=== PATIENT | female | born 1990 | race Caucasian/White ===

== ENCOUNTER 2021-09-01 04:11 | Observation (INO) | payer OTHER, SELFPAY ==
[2021-09-01] VITALS (46 sets, daily range): BP systolic 93–122; BP diastolic 53–100; PULSE 87–160; RESP 12–20; TEMP 36.5–37.8; O2SAT 97–100; BMI 22.4
--- NOTE | 2021-09-01 04:18 | ED_ITS ---
HPI - General Adult <Bonita Eugene MD - Last Filed: 09/05/21 02:27> General Chief complaint: GI Bleed Stated complaint: d/v/n Time Seen by Provider: 09/01/21 04:16 History of Present Illness HPI narrative: 31-year-old woman who had an outpatient procedure today with hemorrhoid removal and keloid revision on her perineum had some bleeding immediately after the procedure came back and saw her primary care physician, Dr. Joseph Mancera who put in another suture and felt that bleeding was controlled. After going home a 2nd time she continued to have significant clots from the operative site continues to experience tenesmus followed by significant clots, multiple episodes of syncope, multiple episodes of emesis (water that she drank prir only). describes multiple ?puddles of blood in the bathroom is brought to the emergency room by her and is laying flat in the backseat unable to sit up without acute syncopal episode. Medics were called to assist in getting her out of the car and into the emergency department. She complains of rapid heartbeat, slight dyspnea, no headache no overt abdominal pain. Related Data Home Medications Medication Instructions Recorded Confirmed No Known Home Medications 09/01/21 09/01/21 Allergies Allergy/AdvReac Type Severity Reaction Status Date / Time No Known Drug Allergies Allergy Verified 09/01/21 04:32 Review of Systems <Bonita Eugene MD - Last Filed: 09/05/21 02:27> Review of Systems Narrative: Remainder of complete review of systems is otherwise unremarkable except for that included in the HPI. Patient History <Bonita Eugene MD - Last Filed: 09/05/21 02:27> Social History household members: spouse and children Smoking Status: Never smoker Exam <Bonita Eugene MD - Last Filed: 09/05/21 02:27> Initial Vital Signs Initial Vital Signs: Vital Signs Temperature 99.1 F 09/01/21 04:15 Pulse Rate 160 H 09/01/21 04:15 Respiratory Rate 17 09/01/21 04:15 Blood Pressure 93/55 L 09/01/21 04:15 Pulse Oximetry 100 09/01/21 04:15 General: Extraordinarily pale, alert and able to participate with history unable to sit without passing out HEENT: Very pale but Moist mucous membranes, normal sclera with reactive pupils, Neck: supple Respiratory: Lungs are clear to auscultation, no wheezing no rales no rhonchi. Full and symmetrical air movement Cardiac: Tachycardic with no murmurs no bruits Abdomen: Soft, nontender, good bowel tones, no flank pain Skin: Warm and dry, no rashes Neurologic: Grossly neurologically intact with no obvious asymmetries or abnorm alities Extremities: No trauma, poor perfusion Rectal: Dried blood but no active bleeding. Psych: Cooperative, appropriate insight and affect Course <Bonita Eugene MD - Last Filed: 09/05/21 02:27> Orders Ordered: Discontinued Medications Acetaminophen (Acetaminophen 325 Mg Tablet) 975 mg PO NOW ONE Stop: 09/01/21 04:42 Last Admin: 09/01/21 04:48 Dose: 975 mg Documented by: VALDEMAR Acetaminophen (Acetaminophen 325 Mg Tablet) 650 mg PO Q6HR PRN PRN Reason: Fever/Mild Pain (1-3) Last Admin: 09/01/21 17:22 Dose: 650 mg Documented by: DOMENICA Diphenhydramine HCl (Diphenhydramine 50 Mg/Ml Vial) 25 mg IV NOW ONE Stop: 09/01/21 04:42 Last Admin: 09/01/21 04:48 Dose: 25 mg Documented by: VALDEMAR Sodium Chloride (Normal Saline 0.9%) 1,000 mls @ 1,000 mls/hr IV BOLUS ONE Stop: 09/01/21 05:48 Last Infusion: 09/01/21 06:30 Dose: 0 mls/hr Documented by: Admin: 09/01/21 04:49 Dose: 1,000 mls/hr Documented by: VALDEMAR Sodium Chloride (Normal Saline 0.9%) 1,000 mls @ 125 mls/hr IV CONT NIMESH Last Admin: 09/01/21 06:33 Dose: 125 mls/hr Documented by: MAAME Lactated Ringer's (Lactated Ringers) 1,000 mls @ 100 mls/hr IV CONT NIMESH Last Infusion: 09/02/21 01:17 Dose: 100 mls/hr Documented by: Admin: 09/02/21 01:16 Dose: 100 mls/hr Documented by: Infusion: 09/01/21 21:06 Dose: 100 mls/hr Documented by: Infusion: 09/01/21 20:10 Dose: 100 mls/hr Documented by: Admin: 09/01/21 11:06 Dose: 100 mls/hr Documented by: DOMENICA Naloxone HCl (Naloxone 0.4 Mg/Ml Vial) 0.2 mg IV Q2MIN PRN PRN Reason: Opiate Reversal Ondansetron HCl (Ondansetron 4 Mg/2 Ml Inj) 4 mg IV NOW ONE Stop: 09/01/21 04:18 Last Admin: 09/01/21 04:48 Dose: 4 mg Documented by: VALDEMAR Ondansetron HCl (Ondansetron 4 Mg/2 Ml Inj) 4 mg IV NOW ONE Stop: 09/01/21 04:42 Last Admin: 09/01/21 05:54 Dose: Not Given Documented by: MAAME Ondansetron HCl (Ondansetron 4 Mg/2 Ml Inj) 4 mg IV Q4HR PRN PRN Reason: Nausea And Vomiting Sodium Chloride (Sodium Chloride 0.9% Flush) 10 ml IV PRN PRN PRN Reason: Flush Sodium Chloride (Sodium Chloride 0.9% Flush) 10 ml IV BID NIMESH Last Admin: 09/02/21 08:03 Dose: 10 ml Documented by: KIRSTY Vital Signs Vital signs: Vital Signs - 8 hr 09/01/21 04:15 09/01/21 04:40 09/01/21 04:48 Temperature 99.1 F 100.1 F H 100.1 F H Pulse Rate 160 H 129 H Respiratory Rate 17 Blood Pressure 93/55 L 95/53 L Pulse Oximetry 100 99 09/01/21 04:50 09/01/21 05:00 09/01/21 05:11 Temperature 99.9 F H 98.4 F 98.4 F Pulse Rate 121 H 116 H 107 H Respiratory Rate Blood Pressure 107/63 105/60 97/62 Pulse Oximetry 100 100 100 09/01/21 05:20 09/01/21 05:30 09/01/21 05:40 Temperature 98.6 F Pulse Rate 102 H 98 H 98 H Respiratory Rate 14 15 14 Blood Pressure 93/65 105/63 105/61 Pulse Oximetry 100 100 100 09/01/21 05:50 09/01/21 05:53 09/01/21 06:00 Temperature 98.6 F 98.6 F Pulse Rate 103 H 93 H Respiratory Rate 16 15 Blood Pressure 107/63 101/62 Pulse Oximetry 100 100 09/01/21 06:10 Temperature Pulse Rate 96 H Respiratory Rate 14 Blood Pressure 103/60 Pulse Oximetry 100 Medical Decision Making <Bonita Eugene MD - Last Filed: 09/05/21 02:27> Lab Data Result diagrams: 09/01/21 21:26 09/01/21 04:30 Labs: Lab Results 09/01/21 09/01/21 09/01/21 Range/Units 04:30 04:30 04:30 WBC 31.3 H* (4.5-11.0) X10^3/uL RBC 3.24 L (4.0-5.2) X10^6/uL Hgb 9.8 L (12.0-16.0) g/dL Hct 28.7 L (36-46) % MCV 88.7 (80-100) fL MCH 30.2 (26-34) PG MCHC 34.0 (30-36) % RDW 13.4 (11.6-14.8) % Plt Count 393 (150-400) X10^3/uL Neut % (Auto) Not Reportable Lymph % (Auto) Not Reportable [place] % (Auto) Not Reportable Eos % (Auto) Not Reportable Baso % (Auto) Not Reportable Neut # (Auto) (9659-8258) /uL Lymph # (Auto) Not Reportable [place] # (Auto) Not Reportable Eos # (Auto) (0-450) /uL Baso # (Auto) Not Reportable Total Counted 100 Seg Neutrophils % 83.0 H (38-70) % Band Neutrophils % 3.0 (3-7) % Lymphocytes % (Manual) 9.0 L (25-45) % Monocytes % (Manual) 5.0 (2-11) % Neutrophils # (Manual) 28649 H (4191-6271) /uL RBC Morphology See below Hypochromasia 1+ H Sodium 140 (137-145) mmol/L Potassium 4.4 (3.4-5.1) mmol/L Chloride 106 (98-107) mmol/L Carbon Dioxide 21 L (22-32) mmol/L BUN 25 H (7-17) mg/dL Creatinine 1.00 (0.52-1.04) mg/dL Estimated GFR > 60.0 (>60) mL/min BUN/Creatinine Ratio 25.0 H (6-22) Glucose 176 H (70-100) mg/dL Calcium 8.3 L (8.4-10.2) mg/dL Total Bilirubin 0.7 (0.2-1.3) mg/dL AST 31 (14-36) IU/L ALT 43 H (<35) IU/L Alkaline Phosphatase 51 (38-126) U/L Total Protein 6.7 (6.3-8.2) g/dL Albumin 4.0 (3.5-5.0) g/dL Globulin 2.7 (1.7-4.1) g/dL Albumin/Globulin Ratio 1.5 (1.0-2.8) SARS-CoV-2 (PCR) (Negative) Blood Type O Negative Antibody Screen Positive Antibody Identification Anti-D Crossmatch See Detail 09/01/21 09/01/21 Range/Units 04:30 05:50 WBC 16.4 H (4.5-11.0) X10^3/uL RBC 3.24 L (4.0-5.2) X10^6/uL Hgb 9.8 L (12.0-16.0) g/dL Hct 28.6 L (36-46) % MCV 88.3 (80-100) fL MCH 30.3 (26-34) PG MCHC 34.4 (30-36) % RDW 13.8 (11.6-14.8) % Plt Count 242 (150-400) X10^3/uL Neut % (Auto) 89.7 H Lymph % (Auto) 5.3 L [place] % (Auto) 5.0 Eos % (Auto) 0.0 L Baso % (Auto) 0.0 Neut # (Auto) 09869 H (5687-0014) /uL Lymph # (Auto) 900 L [place] # (Auto) 800 Eos # (Auto) 0 (0-450) /uL Baso # (Auto) 0 Total Counted Seg Neutrophils % (38-70) % Band Neutrophils % (3-7) % Lymphocytes % (Manual) (25-45) % Monocytes % (Manual) (2-11) % Neutrophils # (Manual) (5679-8635) /uL RBC Morphology Hypochromasia Sodium (137-145) mmol/L Potassium (3.4-5.1) mmol/L Chloride (98-107) mmol/L Carbon Dioxide (22-32) mmol/L BUN (7-17) mg/dL Creatinine (0.52-1.04) mg/dL Estimated GFR (>60) mL/min BUN/Creatinine Ratio (6-22) Glucose (70-100) mg/dL Calcium (8.4-10.2) mg/dL Total Bilirubin (0.2-1.3) mg/dL AST (14-36) IU/L ALT (<35) IU/L Alkaline Phosphatase (38-126) U/L Total Protein (6.3-8.2) g/dL Albumin (3.5-5.0) g/dL Globulin (1.7-4.1) g/dL Albumin/Globulin Ratio (1.0-2.8) SARS-CoV-2 (PCR) Negative (Negative) Blood Type Antibody Screen Antibody Identification Crossmatch MDM Narrative Medical decision making narrative: Otherwise healthy 31-year-old woman post hemorrhoidectomy in the office at 4:00 p.m. today with dramatic bright red bleeding from her rectum with multiple clots and multiple pools of blood prior to arrival. Dramatically symptomatic with obvious blood loss heart rate 161, initial blood pressure 90/64. No obvious ble eding on initial exam. Initial H&H is 9.8 and 28.7 prior to any fluid resuscitation. Because of the obvious blood loss and severe symptomatology, she is given an initial unit of uncrossmatched blood along with a L of saline. 5:50am heart rate is down to 96, blood pressure 107/63. Color is slightly improved. Waiting for repeat CBC to return and then will contact General surgery regarding hospital admission for further observation. [address] Carriz[address]. Will be admitted for observation. Will continue saline maintenance for the time being. With no continued bleeding will not transfuse currently. Will plan on a repeat H&H in [address] Fraser ([phone]) is updated on findings, ER events and plan for hospital admission. Dr Fraser describes procedure as straigt forward with 2 deep 3.0chronic sutures and superficial 4.0 nylon interrupted on the perineum. Bridging orders are entered. Plan is reviewed with pt and . She is safe for transfer to the floor. Discharge Plan Departure Patient Disposition: Admitted as Observation Clinical Impression: Post-operative hemorrhage, Lower gastrointestinal hemorrhage, Hemorrhoids Admit Date/Time: 09/01/21 06:10 Admit Provider: Michael Carrizales
[2021-09-01 04:37] LABS: Hemoglobin 9.8 g/dL (12.0-16.0); Mean Corpuscular Hemoglobin 30.2 PG (26-34); Mean Corpuscular Volume 88.7 fL (80-100); Platelet Count 393 X10^3/uL (150-400); Red Blood Cell Count 3.24 X10^6/uL (4.0-5.2); Red Cell Distribution Width 13.4 % (11.6-14.8)
[2021-09-01 04:39] LABS: White Blood Cell Count 31.3 X10^3/uL (4.5-11.0)
[2021-09-01 04:40] LABS: Add Manual Diff / Slide Review YES; Hematocrit 28.7 % (36-46)
--- NOTE | 2021-09-01 04:42 | PC.NURSE ---
Pt dizzy and lightheaded with syncopal episodes after procedure. uncross matched blood started at 0440 of O neg
[2021-09-01] MEDS: ONDANSETRON 4 MG/2 ML INJ IV (04:48)
[2021-09-01] MEDS: diphenhydrAMINE 50 MG/ML VIAL 25 MG IV (04:48)
[2021-09-01] MEDS: ACETAMINOPHEN 325 MG TABLET 975 MG PO (04:48)
[2021-09-01] MEDS: SODIUM CHLORIDE 0.9% 1,000 ML 1000 ML IV (04:49)
[2021-09-01 04:56] LABS: Albumin Globulin Ratio 1.5 (1.0-2.8); Alkaline Phosphatase 51 U/L (38-126); Aspartate Aminotransferase 31 IU/L (14-36); Bilirubin Total 0.7 mg/dL (0.2-1.3); Blood Urea Nitrogen 25 mg/dL (7-17); Calcium 8.3 mg/dL (8.4-10.2); Carbon Dioxide 21 mmol/L (22-32); Chloride 106 mmol/L (98-107); Estimated Glomerular Filt Rate > 60.0 mL/min (>60); Globulin 2.7 g/dL (1.7-4.1); Glucose 176 mg/dL (70-100); HEMOLYSIS < 15 (0-50); Potassium 4.4 mmol/L (3.4-5.1); Sodium 140 mmol/L (137-145); Total Protein 6.7 g/dL (6.3-8.2)
[2021-09-01 05:03] LABS: Alanine Aminotransferase 43 IU/L (<35)
[2021-09-01 05:04] LABS: COVID19 -Nasal RAPID Negative (Negative)
--- NOTE | 2021-09-01 05:50 | PC.NURSE ---
Blood was started before able to verify in the [facility], verified with HGUBERN. blood started at 0440.
[2021-09-01 05:57] LABS: Add Manual Diff / Slide Review NO; Basophils Absolute Auto 0 /uL (0-100); Eosinophils Absolute Auto 0 /uL (0-450); Hemoglobin 9.8 g/dL (12.0-16.0); Lymphocytes Absolute Auto 900 /uL (1100-4500); Lymphocytes Percent Auto 5.3 % (25-40); Mean Corpuscular HGB Conc 34.4 % (30-36); Mean Corpuscular Hemoglobin 30.3 PG (26-34); Mean Corpuscular Volume 88.3 fL (80-100); Monocytes Absolute Auto 800 /uL (0-900); Neutrophils Absolute Auto 14700 /uL (1500-7000); Neutrophils Percent Auto 89.7 % (50-75); Platelet Count 242 X10^3/uL (150-400); Red Blood Cell Count 3.24 X10^6/uL (4.0-5.2); Red Cell Distribution Width 13.8 % (11.6-14.8); White Blood Cell Count 16.4 X10^3/uL (4.5-11.0)
[2021-09-01 05:58] LABS: Hematocrit 28.6 % (36-46)
[2021-09-01] MEDS: SODIUM CHLORIDE 0.9% 1,000 ML 125 ML IV (06:33)
[2021-09-01 06:45] LABS: Neutrophils Absolute Manual 26918 /uL (3000-5900); Total Cells Counted 100
[2021-09-01 06:46] LABS: Hypochromasia 1+
--- NOTE | 2021-09-01 08:38 | PC.NURSE ---
bed assignment recieved. pending report when nurses no longer involved in another critical patient.
--- NOTE | 2021-09-01 08:58 | PM.HP.1 ---
History of Present Illness History of Present Illness Date Patient Seen: 09/01/21 Time Patient Seen: 08:58 Chief complaint: d/v/n Narrative: 31-year-old woman who presented for acute bleeding after a hemorrhoidectomy procedure. The procedure was performed yesterday at her doctor's office. She describes an excisional hemorrhoidectomy along with removal of the keloid scar of the perineum. After the procedure she went home in had significant bleeding from her rectum. She returned immediately to the doctor's office where a suture was placed at the hemorrhoidectomy site for hemostasis. She returned home but continued to have bleeding throughout the night. She reports feeling as if she needed to have a bowel movement and having dark red blood per rectum throughout the night until about 2:00 a.m. She experienced orthostatic symptoms and near syncope. She came to the emergency room here at [facility] and was found to be profoundly tachycardic. She received a unit of blood with some improvement in her tachycardia. She reports that she has not had any further bladder clots per rectum since roughly 2:00 a.m.. She has a 3-month-old son whom she is nursing. Patient History Family & Social History Safety & Behavioral: Feels Safe in Current Yes Environment Tobacco & Substance use: Smoking Status Never smoker alcohol intake frequency a few times a week Substance Use Type does not use Meds Home Medications and Allergies Allergies Allergy/AdvReac Type Severity Reaction Status Date / Time No Known Drug Allergies Allergy Verified 09/01/21 04:32 Exam Vital Signs (past 8 hours): - 09/01/21 04:15 09/01/21 04:40 09/01/21 04:48 Temperature 99.1 F 100.1 F H 100.1 F H Pulse Rate 160 H 129 H Respiratory Rate 17 Blood Pressure 93/55 L 95/53 L Pulse Oximetry 100 99 09/01/21 04:50 09/01/21 05:00 09/01/21 05:11 Temperature 99.9 F H 98.4 F 98.4 F Pulse Rate 121 H 116 H 107 H Respiratory Rate Blood Pressure 107/63 105/60 97/62 Pulse Oximetry 100 100 100 09/01/21 05:20 09/01/21 05:30 09/01/21 05:40 Temperature 98.6 F Pulse Rate 102 H 98 H 98 H Respiratory Rate 14 15 14 Blood Pressure 93/65 105/63 105/61 Pulse Oximetry 100 100 100 09/01/21 05:50 09/01/21 05:53 09/01/21 06:00 Temperature 98.6 F 98.6 F Pulse Rate 103 H 93 H Respiratory Rate 16 15 Blood Pressure 107/63 101/62 Pulse Oximetry 100 100 09/01/21 06:10 09/01/21 06:20 09/01/21 06:30 Temperature Pulse Rate 96 H 108 H 107 H Respiratory Rate 14 16 12 Blood Pressure 103/60 93/56 L 95/60 Pulse Oximetry 100 100 99 09/01/21 06:40 09/01/21 06:50 09/01/21 07:00 Temperature Pulse Rate 103 H 100 H 99 H Respiratory Rate 16 15 15 Blood Pressure 97/60 98/60 99/62 Pulse Oximetry 98 98 98 09/01/21 07:10 09/01/21 07:20 09/01/21 07:30 Temperature Pulse Rate 99 H 102 H 102 H Respiratory Rate 15 14 15 Blood Pressure 105/57 L 106/59 L 95/58 L Pulse Oximetry 98 98 98 09/01/21 07:41 09/01/21 07:44 09/01/21 07:50 Temperature Pulse Rate 110 H 122 H 120 H Respiratory Rate 16 15 17 Blood Pressure 115/100 H 104/58 L 109/58 L Pulse Oximetry 99 98 09/01/21 08:00 09/01/21 08:10 09/01/21 08:20 Temperature Pulse Rate 116 H 122 H 101 H Respiratory Rate 16 16 15 Blood Pressure 105/60 101/59 L 103/61 Pulse Oximetry 09/01/21 08:30 Temperature Pulse Rate 117 H Respiratory Rate 13 Blood Pressure 103/58 L Pulse Oximetry Oxygen Delivery Method Room Air Const General: healthy appearing and No acute distress Resp Effort & Inspection: normal respiratory effort Cardio Rate: tachycardic Objective Labs Result Diagrams: 09/01/21 05:50 09/01/21 04:30 Labs: Laboratory Results - last 24 hr 09/01/21 09/01/21 09/01/21 04:30 04:30 04:30 WBC 31.3 H* RBC 3.24 L Hgb 9.8 L Hct 28.7 L MCV 88.7 MCH 30.2 MCHC 34.0 RDW 13.4 Plt Count 393 Neut % (Auto) Not Reportable Lymph % (Auto) Not Reportable [place] % (Auto) Not Reportable Eos % (Auto) Not Reportable Baso % (Auto) Not Reportable Neut # (Auto) Lymph # (Auto) Not Reportable [place] # (Auto) Not Reportable Eos # (Auto) Baso # (Auto) Not Reportable Total Counted 100 Seg Neutrophils % 83.0 H Band Neutrophils % 3.0 Lymphocytes % (Manual) 9.0 L Monocytes % (Manual) 5.0 Neutrophils # (Manual) 01675 H RBC Morphology See below Hypochromasia 1+ H Sodium 140 Potassium 4.4 Chloride 106 Carbon Dioxide 21 L BUN 25 H Creatinine 1.00 Estimated GFR > 60.0 BUN/Creatinine Ratio 25.0 H Glucose 176 H Calcium 8.3 L Total Bilirubin 0.7 AST 31 ALT 43 H Alkaline Phosphatase 51 Total Protein 6.7 Albumin 4.0 Globulin 2.7 Albumin/Globulin Ratio 1.5 SARS-CoV-2 (PCR) Blood Type O Negative Antibody Screen Positive Antibody Identification Anti-D Crossmatch See Detail 09/01/21 09/01/21 04:30 05:50 WBC 16.4 H RBC 3.24 L Hgb 9.8 L Hct 28.6 L MCV 88.3 MCH 30.3 MCHC 34.4 RDW 13.8 Plt Count 242 Neut % (Auto) 89.7 H Lymph % (Auto) 5.3 L [place] % (Auto) 5.0 Eos % (Auto) 0.0 L Baso % (Auto) 0.0 Neut # (Auto) 83438 H Lymph # (Auto) 900 L [place] # (Auto) 800 Eos # (Auto) 0 Baso # (Auto) 0 Total Counted Seg Neutrophils % Band Neutrophils % Lymphocytes % (Manual) Monocytes % (Manual) Neutrophils # (Manual) RBC Morphology Hypochromasia Sodium Potassium Chloride Carbon Dioxide BUN Creatinine Estimated GFR BUN/Creatinine Ratio Glucose Calcium Total Bilirubin AST ALT Alkaline Phosphatase Total Protein Albumin Globulin Albumin/Globulin Ratio SARS-CoV-2 (PCR) Negative Blood Type Antibody Screen Antibody Identification Crossmatch Assessment & Plan Assessment and plan (1) Post-operative hemorrhage: Status: Acute Plan I believe her bleeding has stopped as she has not had any further bloody bowel movements since about 2:00 a.m.. She did however loses significant volume of blood and remains tachycardic. She remains at risk for further rebleeding. Will admit for observation. She will be NPO initially so that if she has any signs of additional bleeding we can proceed immediately to the operating room. If she does not show signs of increased bleeding we will start her on diet and continue to resuscitate her and plan to discharge her home once her hemoglobin and heart rate are stable. Time Spent With Patient Critical Care time: I spent a total of [] minutes of critical care time on this patient's care today; this time is exclusive of procedural time.
--- NOTE | 2021-09-01 10:06 | PC.NURSE ---
Day shift: Pt on unit from ED at approx 1006.
[2021-09-01] MEDS: LACTATED RINGERS 1,000 ML 100 ML IV (11:06)
[2021-09-01 13:21] LABS: Add Manual Diff / Slide Review NO; Basophils Absolute Auto 0 /uL (0-100); Basophils Percent Auto 0.1 % (0-2); Eosinophils Absolute Auto 0 /uL (0-450); Hematocrit 25.6 % (36-46); Hemoglobin 8.9 g/dL (12.0-16.0); Lymphocytes Absolute Auto 2200 /uL (1100-4500); Mean Corpuscular HGB Conc 34.9 % (30-36); Mean Corpuscular Volume 88.8 fL (80-100); Monocytes Absolute Auto 1000 /uL (0-900); Monocytes Percent Auto 6.8 % (3-14); Neutrophils Absolute Auto 11600 /uL (1500-7000); Neutrophils Percent Auto 78.1 % (50-75); Platelet Count 215 X10^3/uL (150-400); Red Blood Cell Count 2.88 X10^6/uL (4.0-5.2); Red Cell Distribution Width 13.9 % (11.6-14.8); White Blood Cell Count 14.9 X10^3/uL (4.5-11.0)
--- NOTE | 2021-09-01 13:55 | PC.NURSE ---
Day shift: Pt given printout about hemoglobin and anemia at approx 1345. VS stable w/ HR <120 and 90's when at rest. Spouse in room for support. They are both trying to catch up on sleep. Pt did well getting to [facility] and she had a loose and bloody stool. Dr Galaviz aware. Call light in reach. Tolerating ice chips and remains NPO except for the ice per MD orders.
--- NOTE | 2021-09-01 15:44 | PM.PN.1 ---
Subjective Subjective Date Patient Seen: 09/01/21 Time Patient Seen: 15:44 Interval history: She has had 2 more bloody bowel movements since 8:00 a.m. but smaller in quantity than they were last night. Still has some tachycardia when she is moving around or standing up. Exam Vital Signs (past 8 hours): - 09/01/21 07:50 09/01/21 08:00 09/01/21 08:10 Temperature Pulse Rate 120 H 116 H 122 H Respiratory Rate 17 16 16 Blood Pressure 109/58 L 105/60 101/59 L Pulse Oximetry 09/01/21 08:20 09/01/21 08:30 09/01/21 08:40 Temperature Pulse Rate 101 H 117 H 127 H Respiratory Rate 15 13 13 Blood Pressure 103/61 103/58 L 105/56 L Pulse Oximetry 09/01/21 08:50 09/01/21 09:00 09/01/21 09:10 Temperature Pulse Rate 114 H 104 H 101 H Respiratory Rate 16 15 14 Blood Pressure 101/58 L 102/59 L 107/60 Pulse Oximetry 09/01/21 09:20 09/01/21 09:30 09/01/21 09:40 Temperature Pulse Rate 103 H 102 H 99 H Respiratory Rate 14 15 14 Blood Pressure 108/60 106/61 105/64 Pulse Oximetry 09/01/21 09:50 09/01/21 10:00 09/01/21 10:21 Temperature 99.2 F Pulse Rate 101 H 107 H 105 H Respiratory Rate 14 14 16 Blood Pressure 105/57 L 109/60 112/66 Pulse Oximetry 98 09/01/21 13:51 09/01/21 15:00 Temperature 98.9 F 98.9 F Pulse Rate 128 H 128 H Respiratory Rate 16 16 Blood Pressure 122/77 122/77 Pulse Oximetry 99 99 Oxygen Delivery Method Room Air Objective Labs Result Diagrams: 09/01/21 12:40 09/01/21 04:30 Labs: Laboratory Results - last 24 hr 09/01/21 09/01/21 09/01/21 04:30 04:30 04:30 WBC 31.3 H* RBC 3.24 L Hgb 9.8 L Hct 28.7 L MCV 88.7 MCH 30.2 MCHC 34.0 RDW 13.4 Plt Count 393 Neut % (Auto) Not Reportable Lymph % (Auto) Not Reportable [place] % (Auto) Not Reportable Eos % (Auto) Not Reportable Baso % (Auto) Not Reportable Neut # (Auto) Lymph # (Auto) Not Reportable [place] # (Auto) Not Reportable Eos # (Auto) Baso # (Auto) Not Reportable Total Counted 100 Seg Neutrophils % 83.0 H Band Neutrophils % 3.0 Lymphocytes % (Manual) 9.0 L Monocytes % (Manual) 5.0 Neutrophils # (Manual) 90185 H RBC Morphology See below Hypochromasia 1+ H Sodium 140 Potassium 4.4 Chloride 106 Carbon Dioxide 21 L BUN 25 H Creatinine 1.00 Estimated GFR > 60.0 BUN/Creatinine Ratio 25.0 H Glucose 176 H Calcium 8.3 L Total Bilirubin 0.7 AST 31 ALT 43 H Alkaline Phosphatase 51 Total Protein 6.7 Albumin 4.0 Globulin 2.7 Albumin/Globulin Ratio 1.5 SARS-CoV-2 (PCR) Blood Type O Negative Antibody Screen Positive Antibody Identification Anti-D Crossmatch See Detail 09/01/21 09/01/21 09/01/21 04:30 05:50 12:40 WBC 16.4 H 14.9 H RBC 3.24 L 2.88 L Hgb 9.8 L 8.9 L Hct 28.6 L 25.6 L MCV 88.3 88.8 MCH 30.3 31.0 MCHC 34.4 34.9 RDW 13.8 13.9 Plt Count 242 215 Neut % (Auto) 89.7 H 78.1 H Lymph % (Auto) 5.3 L 15.0 L [place] % (Auto) 5.0 6.8 Eos % (Auto) 0.0 L 0.0 L Baso % (Auto) 0.0 0.1 Neut # (Auto) 98166 H 37789 H Lymph # (Auto) 900 L 2200 [place] # (Auto) 800 1000 H Eos # (Auto) 0 0 Baso # (Auto) 0 0 Total Counted Seg Neutrophils % Band Neutrophils % Lymphocytes % (Manual) Monocytes % (Manual) Neutrophils # (Manual) RBC Morphology Hypochromasia Sodium Potassium Chloride Carbon Dioxide BUN Creatinine Estimated GFR BUN/Creatinine Ratio Glucose Calcium Total Bilirubin AST ALT Alkaline Phosphatase Total Protein Albumin Globulin Albumin/Globulin Ratio SARS-CoV-2 (PCR) Negative Blood Type Antibody Screen Antibody Identification Crossmatch [facility] Social History household members: spouse and children Smoking Status: Never smoker Assessment & Plan Assessment and plan (1) Post-operative hemorrhage: Status: Acute Plan Will transfuse 1 more unit and recheck vital signs afterwards. Time Spent With Patient Critical Care time: I spent a total of [] minutes of critical care time on this patient's care today; this time is exclusive of procedural time. Quality VTE Deep Vein Thrombosis/Pulmonary Embolism Present on Admission: No
[2021-09-01] MEDS: ACETAMINOPHEN 325 MG TABLET 650 MG PO (17:22)
--- NOTE | 2021-09-01 18:33 | PC.NURSE ---
Day shift: Per poelena conversation w/ Dr Galaviz blood infusing rate increased to 180ml/hr.
[2021-09-01 21:41] LABS: Add Manual Diff / Slide Review NO; Basophils Absolute Auto 0 /uL (0-100); Basophils Percent Auto 0.1 % (0-2); Eosinophils Absolute Auto 0 /uL (0-450); Hematocrit 25.5 % (36-46); Hemoglobin 8.9 g/dL (12.0-16.0); Lymphocytes Absolute Auto 2900 /uL (1100-4500); Lymphocytes Percent Auto 25.3 % (25-40); Mean Corpuscular HGB Conc 34.7 % (30-36); Mean Corpuscular Hemoglobin 30.7 PG (26-34); Mean Corpuscular Volume 88.4 fL (80-100); Monocytes Absolute Auto 900 /uL (0-900); Monocytes Percent Auto 7.6 % (3-14); Neutrophils Absolute Auto 7700 /uL (1500-7000); Platelet Count 177 X10^3/uL (150-400); Red Blood Cell Count 2.88 X10^6/uL (4.0-5.2); Red Cell Distribution Width 14.1 % (11.6-14.8); White Blood Cell Count 11.5 X10^3/uL (4.5-11.0)
[2021-09-02 01:00] VITALS: BP 107/65; PULSE 87; RESP 16; O2SAT 97
[2021-09-02] MEDS: LACTATED RINGERS 1,000 ML 100 ML IV (01:16)
[2021-09-02 03:00] VITALS: BP 106/66; PULSE 85; RESP 14; O2SAT 97
[2021-09-02 05:00] VITALS: BP 115/76; PULSE 89; RESP 16; O2SAT 97
[2021-09-02 07:00] VITALS: BP 108/69; PULSE 90; RESP 21; TEMP 36.8; O2SAT 99
[2021-09-02] MEDS: SODIUM CHLORIDE 0.9% FLUSH 10 ML IV (08:03)
[2021-09-02 09:00] VITALS: BP 115/72; PULSE 94; RESP 20; TEMP 37.1; O2SAT 97
[2021-09-02 09:07] VITALS: O2SAT 98
--- NOTE | 2021-09-02 09:12 | P.DS_ITS ---
History of Present Illness History of Present Illness Chief complaint: d/v/n Narrative: 31-year-old woman who presented for acute bleeding after a hemorrhoidectomy procedure. The procedure was performed yesterday at her doctor's office. She describes an excisional hemorrhoidectomy along with removal of the keloid scar of the perineum. After the procedure she went home in had significant bleeding from her rectum. She returned immediately to the doctor's office where a suture was placed at the hemorrhoidectomy site for hemostasis. She returned home but continued to have bleeding throughout the night. She reports feeling as if she needed to have a bowel movement and having dark red blood per rectum throughout the night until about 2:00 a.m. She experienced orthostatic symptoms and near syncope. She came to the emergency room here at [facility] and was found to be profoundly tachycardic. She received a unit of blood with some improvement in her tachycardia. She reports that she has not had any further bladder clots per rectum since roughly 2:00 a.m.. She has a 3-month-old son whom she is nursing. Discharge Providers Provider Date of admission: 09/01/21 06:10 Discharge Date: 09/02/21 Discharge provider: Andrea Galaviz MD Summary Hospital Course Hospital Course: She is admitted for observation. She received 2 units of packed red blood cells due to her tachycardia. Her bloody bowel movements decreased in frequency and volume and by the morning of September 02 she was no longer tachycardic and no longer having bloody bowel movements. She was discharged home but instructed to return if she develops more bloody bowel movements. Exam Vital Signs (past 8 hours): - 09/02/21 03:00 09/02/21 05:00 09/02/21 07:00 Temperature 98.3 F Pulse Rate 85 89 90 Respiratory Rate 14 16 21 Blood Pressure 106/66 115/76 108/69 Pulse Oximetry 97 97 99 09/02/21 09:07 Temperature Pulse Rate Respiratory Rate Blood Pressure Pulse Oximetry 98 Oxygen Delivery Method Room Air Oxygen Flow Rate 0 Objective Labs Result Diagrams: 09/01/21 21:26 09/01/21 04:30 Labs: Laboratory Results - last 24 hr 09/01/21 09/01/21 09/01/21 04:30 12:40 21:26 WBC 14.9 H 11.5 H RBC 2.88 L 2.88 L Hgb 8.9 L 8.9 L Hct 25.6 L 25.5 L MCV 88.8 88.4 MCH 31.0 30.7 MCHC 34.9 34.7 RDW 13.9 14.1 Plt Count 215 177 Neut % (Auto) 78.1 H 67.0 Lymph % (Auto) 15.0 L 25.3 [place] % (Auto) 6.8 7.6 Eos % (Auto) 0.0 L 0.0 L Baso % (Auto) 0.1 0.1 Neut # (Auto) 77135 H 7700 H Lymph # (Auto) 2200 2900 [place] # (Auto) 1000 H 900 Eos # (Auto) 0 0 Baso # (Auto) 0 0 Blood Type O Negative Antibody Screen Positive Antibody Identification Anti-D Crossmatch See Detail [facility] Social History household members: spouse and children Smoking Status: Never smoker Discharge Plan Discharge Plan Patient Disposition: Home Provider Discharge Comment: To prevent further problems from hemorrhoids I recommend high-fiber diet. A high-fiber diet consists of lots of fresh fruits and vegetables, whole grains and legumes. Examples of whole grains are oatmeal, 100% whole wheat bread, rye, corn and quinoa. Examples of legumes are beans, lentils and peas. Discharge orders & Medications Prescriptions: No Action No Known Home Medications 0RF Visit Report/Discharge Packet Instructions: Hemoglobin, Anemia Quality VTE Deep Vein Thrombosis/Pulmonary Embolism Present on Admission: No
--- NOTE | 2021-09-02 11:00 | PC.NURSE ---
pt tolerated her breakfast, no n/v. no lightheadedness, no dizziness. vss. no pain.
--- NOTE | 2021-09-02 12:33 | CM.IDA ---
Initial DCP Assessment Note Pt is a 31 yo female, resident of [place], arrives w/ acute bleeding after a hemorrhoidectomy procedure. Patient arrived at and was found to be tachycardic. She received a unit of blood with some improvement in her tachycardia Patient discharged today, home, symptoms resolved, close outpatient f/u recommended. PCP: Not listed Payer: [facility] Reviewed chart, pt discussed w/ RN Matlock. Patient getting ready for DC; breast feeding 3 month old, plans to return home w/supportive spouse and family. RN denies needs for this 31 yo. No needs expected from DC planning team although will remain available in case this changes before DC. SHASHA Ray
== END 2021-09-02 10:20 | disposition home or self-care (01) | DRG 920 ==
LOC: ED 05:05 → AC 06:19
PROVIDERS: Surgery; Admitting Provider Surgery; Emergency Provider Emergency Medicine; Visit Provider Surgery
DX: K91.840 Postprocedural hemorrhage of a digestive system organ or structure following a digestive system procedure (principal); D62 Acute posthemorrhagic anemia; Z20.822 Contact with and (suspected) exposure to COVID-19
CPT/HCPCS: 36415; 36430; 80053; 85007; 85025; 86850; 86870; 86900; 86901; 87635; 94762; 96374; 96375; 99217; 99219; 99222; 99238; 99284; C9803; G0378; P9016; J1200; J2405